=== PATIENT | male | born 1990 | race Caucasian/White ===

== ENCOUNTER → 2024-10-30 | Outpatient (CLI) | payer BC, SELFPAY ==
--- NOTE | 2024-10-30 16:09 | XR_ITS ---
Examination: PA lateral chest 2 views TECHNIQUE: Upright PA lateral chest 2 views Exam date and time: October 30, 2024 1619 hours INDICATIONS: Acute bronchitis diagnosis 2 weeks FINDINGS: Normal heart size. Lungs are clear. The osseous structures are mildly demineralized IMPRESSION: No active disease
== END | disposition home or self-care (01) ==
LOC: CDIM 15:29
PROVIDERS: PCP Internal Medicine; Referring Provider Nurse Practitioner Family; Visit Provider Nurse Practitioner Family
DX: J20.9 Acute bronchitis, unspecified (principal)
CPT/HCPCS: 71046

== ENCOUNTER → 2025-07-04 | Outpatient (CLI) | payer OTHER, SELFPAY ==
--- NOTE | 2025-07-04 | XR_ITS ---
EXAMINATION: Right knee 2 views TECHNIQUE: 1AP lateral right knee 2 views Date and time: July 04, 2025, 1138 hours INDICATIONS: Injury to the knee 6 days ago, knee pain. FINDINGS: No fracture or dislocation. No opaque foreign body. IMPRESSION: No fracture or dislocation.
== END | disposition home or self-care (01) ==
PROVIDERS: PCP Family Medicine; Referring Provider Physician Assistant; Visit Provider Physician Assistant
DX: S89.91XA Unspecified injury of right lower leg, initial encounter (principal); X58.XXXA Exposure to other specified factors, initial encounter
CPT/HCPCS: 73560